=== PATIENT | male | born 1960 | race Hispanic/Latino ===

== ENCOUNTER 2019-12-31 12:28 | Emergency (ER) | payer SELFPAY ==
[~2019-12-31] VITALS: Ht 170.2 cm; Wt 104.3 kg
[2019-12-31] MEDS ORDERED: ACETAMINOPHEN 325 MG TAB PO ONE (13:00)
--- NOTE | 2019-12-31 13:25 | Emergency Department Note ---
History of Present Illnes History of Present Illness Chief Complaint: COVID PUI History of Present Illness This is a 59 year old male C/O SORE THROAT, SOB, FEVER, CHILLS, MUSCLE ACHES X 2 WEEKS SEEN BY PCP GIVEN Z PACK AND PREDNISONE PT NOT TAKING TYLENOL FOR FEVER. 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 Any updates have been documented here. Past Medical History Recent Fever: Yes Clinical Suspicion of Infectio: Yes New/Unexplained Change in Ment: No Past Medical History: Hyperlipedemia Past Surgical History: None Social History Smoking Cessation: Never Smoker Counseling Performed: No Alcohol Use: Social Any Illegal Drug Use: No TB Exposure/Symptoms: No Physically hurt or threatened: No Family History Family history of heart diseas: No Other Any Pre-Existing Lines (PICC,: No Review of Systems Review of Systems Constitutional: Reports as per HPI EENTM: Reports no symptoms Cardiovascular: Reports no symptoms Respiratory: Reports as per HPI Gastrointestinal: Reports no symptoms Genitourinary: Reports no symptoms Musculoskeletal: Reports no symptoms Integumentary: Reports no symptoms Neurological: Reports no symptoms Psychological: Reports no symptoms Endocrine: Reports no symptoms Hematological/Lymphatic: Reports no symptoms Physical Exam Related Data Allergies: Coded Allergies: hydrocodone (Verified Allergy, Unknown, 12/31/19) Triage Vital Signs Vital Signs Date Time Temp Pulse Resp B/P (MAP) Pulse Ox O2 Delivery O2 Flow Rate FiO2 12/31/19 12:51 102.2 103 24 138/91 97 Room Air Vital signs reviewed: Yes Physical Exam CONSTITUTIONAL Constitutional: Present well-developed, Present well-nourished HENT HENT: Present normocephalic, Present atraumatic, Present oropharynx clear/moist, Present nose normal HENT L/R: Present left ext ear normal, Present right ext ear normal EYES Eyes: Reports PERRL, Reports conjunctivae normal NECK Neck: Present ROM normal PULMONARY Pulmonary: Present effort normal, Present breath sounds normal CARDIOVASCULAR Cardiovascular: Present regular rhythm, Present heart sounds normal, Present capillary refill normal, Present normal rate GASTROINTESTINAL Abdominal: Present soft, Present nontender, Present bowel sounds normal GENITOURINARY Genitourinary: Present exam deferred SKIN Skin: Present warm, Present dry MUSCULOSKELETAL Musculoskeletal: Present ROM normal NEUROLOGICAL Neurological: Present alert, Present oriented x 3, Present no gross motor or sensory deficits PSYCHOLOGICAL Psychological: Present mood/affect normal, Present judgement normal Results Imaging Imaging results reviewed: Yes Impressions Examination: Single AP view of the chest. COMPARISON: None. INDICATION: Cough, shortness of breath DISCUSSION: Lines/tubes: None. Lungs: Scattered groundglass and airspace consolidations. Pleura: No pleural effusion or pneumothorax. Heart and mediastinum: The heart and the mediastinum are unremarkable. Bones and soft tissues: No acute bony abnormalities. IMPRESSION: 1. Multifocal pneumonia Signed by: Dr. Gideon Cheney M.D. 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 Date: Dec 31, 2019 Time: 13:10 Rhythm: sinus tachycardia Rate: tachycardia (104) QRS axis: normal ST segments normal: Yes T waves normal: Yes Clinical Impression: abnormal ECG (SINUS TACHYCARDIA O/W NORMAL) Assessment & Plan Medical Decision Making MDM check cxr r/o cap vs more likely COVID Reassessment Reassessment o2 sat 97% on RA, finish z-pack/prednisone, self-quarantine, proning, rted sx's worsen Assessment & Plan Final Impression: (1) Pneumonia due to COVID-19 virus Depart Disposition: HOME, SELF-CARE Last Vital Signs Date Time Temp Pulse Resp B/P (MAP) Pulse Ox O2 Delivery O2 Flow Rate FiO2 12/31/19 12:51 102.2 103 24 138/91 97 Room Air Medications in the ED Acetaminophen 975 mg ONCE ONCE PO ; Start 12/31/19 at 13:00; Stop 12/31/19 at 13:13; Status DC DON DORANTES MD Dec 31, 2019 13:25
--- NOTE | 2019-12-31 14:34 | Diagnostic Imaging Report ---
Examination: Single AP view of the chest. COMPARISON: None. INDICATION: Cough, shortness of breath DISCUSSION: Lines/tubes: None. Lungs: Scattered groundglass and airspace consolidations. Pleura: No pleural effusion or pneumothorax. Heart and mediastinum: The heart and the mediastinum are unremarkable. Bones and soft tissues: No acute bony abnormalities. IMPRESSION: 1. Multifocal pneumonia Signed by: Dr. Gideon Cheney M.D. on 12/31/2019 2:31 PM
== END 2019-12-31 14:45 | disposition home or self-care (01) ==
LOC: ER 12:55
DX: U07.1 COVID-19 (principal); J18.9 Pneumonia, unspecified organism; R50.9 Fever, unspecified; R06.02 Shortness of breath; R05 Cough; E78.5 Hyperlipidemia, unspecified
CPT/HCPCS: 71045; 93005; 99283